=== PATIENT | female | born 1945 | race Caucasian/White ===

== ENCOUNTER → 2017-10-24 | Outpatient (CLI) | payer MEDICARE, OTHER ==
[~2017-10-24] MED LIST: ACEBUTCAFT PO; ASPI81CH PO; CEPH500 PO; DIVA250EC PO; HYDACE5 PO; ONDA4 PO; PROC10 PO; ZOLP5 PO
[2017-10-26 15:09] LABS: HPV 16 Negative (Negative); HPV 18 Negative (Negative); HPV OTHER HR TYPES Negative (Negative)
== END | disposition home or self-care (01) ==
LOC: LAB SHORT 19:14 → LAB 19:14
PROVIDERS: Obstetrics & Gynecology Gynecology
DX: Z12.4 Encounter for screening for malignant neoplasm of cervix (principal)
CPT/HCPCS: 87624; G0123

== ENCOUNTER 2018-10-28 06:36 | Day surgery (SDC) | payer MEDICARE, OTHER ==
[~2018-10-28] VITALS: Ht 160 cm; Wt 79.1 kg
[~2018-10-28 06:36] MED LIST changes: +ALLO300 PO; +CHOL10002 PO; +DULO30 PO; +ENOX40I SC; +EZET10; +FENOFIBRATE145 MG PO; +PROM12.5S PO; +ROXICODONE5 MG PO; +Zolpidem Tartrat5 MG PO
--- NOTE | 2018-10-28 08:16 | NUR ---
10/28/18 0816 Ronit De La Torre 2 CHLORAPREP STICKS USED DUE TO SIZE OF SURGICAL AREA.
--- NOTE | 2018-10-28 09:37 | NUR ---
10/28/18 0937 Tong Cristina PT CURRENTLY RESTING IN RECLINER WITH NEXT TO HER. PT REPORTS NO PAIN OR NAUSEA AT THIS TIME. VITALS STABLE. WILL CONTINUE TO MONITOR PT.
== END 2018-10-28 10:50 | disposition home or self-care (01) ==
LOC: ORSCSDS 06:36
PROVIDERS: Orthopaedic Surgery
PROC: 0LQ14ZZ Repair Right Shoulder Tendon, Percutaneous Endoscopic Approach (ICD-10-PCS; principal; 2018-10-28 07:30)
PROC: 0LS14ZZ Reposition Right Shoulder Tendon, Percutaneous Endoscopic Approach (ICD-10-PCS; principal; 2018-10-28 07:30)
DX: M75.121 Complete rotator cuff tear or rupture of right shoulder, not specified as traumatic (principal); S46.101A Unspecified injury of muscle, fascia and tendon of long head of biceps, right arm, initial encounter; I10 Essential (primary) hypertension; I25.2 Old myocardial infarction; Z86.73 Personal history of transient ischemic attack (TIA), and cerebral infarction without residual deficits; Z79.899 Other long term (current) drug therapy; Z79.82 Long term (current) use of aspirin
CPT/HCPCS: C1713; J0171; J0690; J1100; J1885; J2250; J2405; J2704; J2710; J3010; J3370; J7120

== ENCOUNTER 2019-04-25 18:31 | Inpatient (IN) | payer MEDICARE, OTHER ==
[~2019-04-25] VITALS: Ht 160 cm; Wt 77.1 kg
[~2019-04-25 18:31] MED LIST changes: -ASPI81CH PO; +Aspir 8181 MG PO; -CHOL10002 PO; -EZET10; +VITAMIN D350 MCG PO
[2019-04-25 19:27] LABS: BASOPHILS ABSOLUTE AUTO 0.11 K/mm3 (0.00-0.23); BASOPHILS PERCENT AUTO 1 % (0-2); EOSINOPHILS ABSOLUTE AUTO 0.16 K/mm3 (0.00-0.68); EOSINOPHILS PERCENT AUTO 2 % (0-6); Hematocrit 24.9 % (33.0-51.0); Hemoglobin 7.3 g/dL (11.5-16.0); IMMATURE GRAN ABSOLUTE AUTO 0.03 K/mm3 (0.00-0.10); IMMATURE GRAN PERCENT AUTO 0 % (0-1); LYMPHOCYTES ABSOLUTE AUTO 3.11 K/mm3 (0.84-5.20); LYMPHOCYTES PERCENT AUTO 33 % (21-46); MONOCYTES PERCENT AUTO 10 % (4-13); Mean Corpuscular HGB 21.6 pg (26.0-34.0); Mean Corpuscular HGB Conc 29.3 g/dL (31.5-36.5); Mean Corpuscular Volume 74 fL (80-100); Mean Platelet Volume 11.2 fL (9.1-12.4); NEUTROPHILS ABSOLUTE AUTO 4.99 K/mm3 (1.96-9.15); NEUTROPHILS PERCENT AUTO 54 % (41-73); Platelet Count 479 K/mm3 (150-400); RDW Coefficient Variation 16.3 % (11.7-14.2); RDW Standard Deviation 43.5 fL (35.1-46.3); Red Blood Cell Count 3.38 M/mm3 (3.80-5.20)
[2019-04-25] MEDS ORDERED: EZETIMIBE10 MG PO (19:38)
[2019-04-25 19:41] LABS: International Normalized Ratio 0.99; Prothrombin Time Results 10.6 Sec (9.7-11.5)
[2019-04-25 19:51] LABS: Albumin, Blood 3.4 g/dL (3.4-5.0); Bilirubin, Total 0.2 mg/dL (0.1-1.0); Bun/Creatinine Ratio 42.5 (12.0-20.0); Calcium, Blood 8.9 mg/dL (8.5-10.1); Creatinine, Blood 1.06 mg/dL (0.40-1.00); Globulin, Blood 3.3 g/dL (2.2-4.0); Potassium, Blood 4.6 mmol/L (3.5-5.5); Total Protein, Blood 6.7 g/dL (6.4-8.2)
[2019-04-25 19:56] LABS: IMMATURE RETIC FRACTION 34.5 % (2.3-16.0); RETIC HGB EQUIVALENT 19.8 pg (28.20-36.60); RETICULOCYTE ABSOLUTE 0.0789 M/mm3 (0.0200-0.1100); RETICULOCYTE COUNT PERCENT 2.34 % (0.50-2.50)
[2019-04-25 20:05] LABS: Troponin I <0.015 ng/mL (0.000-0.040); Valproic Acid 42.7 ug/mL (50.0-100.0)
[2019-04-25] MEDS ORDERED: OMEP20ER PO (20:41)
[2019-04-25] MEDS ORDERED: SUCR1 PO (21:12)
--- NOTE | 2019-04-26 03:56 | NUR ---
ADMIT NOTE *LATE ENTRY* HANDOFF RECEIVED FROM ER NURSE CASEY. PT ARRIVED TO FLOOR VIA GURNEY. ORIENTED PT TO UNIT AND ROOM. CALL BUTTON WITHIN REACH. BLOOD TRANSFUSION BEGAN IMMEDIATELY ORDERED.
--- NOTE | 2019-04-26 04:21 | NUR ---
SHIFT SUMMARY PT ADMITTED FROM ER THIS SHIFT. ADMITTED FOR SYMPTOMATIC ANEMIA. FULL CODE. GI CONSULT TO DR COSME HAS BEEN CALLED IN. PT IS WEAK SO WE DID A ONE STANDBY ASSIST. PT RECEIVED ONE UNIT OF BLOOD. SCD'S ARE IN PLACE. WATCHING H&H LABS. SHE IS A&O X4, RA. SHE HAS BEEN NPO SINCE MIDNIGHT IN PREPARATION FOR AN UPPER ENDO. HX: SEIZURES, ARTHRITIS, NEPHROLITHIASIS, HYPERLIPIDEMIA, GOUT, OSTEOPENIA, CATARACTS, HTN.
[2019-04-26 05:00] LABS: Hemoglobin 7.1 g/dL (11.5-16.0); Mean Corpuscular HGB 21.4 pg (26.0-34.0); Mean Corpuscular HGB Conc 28.4 g/dL (31.5-36.5); Mean Corpuscular Volume 75 fL (80-100); Platelet Count 362 K/mm3 (150-400); RDW Coefficient Variation 16.3 % (11.7-14.2); RDW Standard Deviation 44.5 fL (35.1-46.3); Red Blood Cell Count 3.32 M/mm3 (3.80-5.20); White Blood Cell Count 7.99 K/mm3 (4.00-11.30)
[2019-04-26 05:22] LABS: Bun/Creatinine Ratio 36.7 (12.0-20.0); Calcium, Blood 8.3 mg/dL (8.5-10.1); Creatinine, Blood 1.09 mg/dL (0.40-1.00); Potassium, Blood 4.4 mmol/L (3.5-5.5)
--- NOTE | 2019-04-26 14:07 | NUR ---
History, Chart, Medications and Allergies reviewed before start of procedure. Patient confirms NPO status and agrees with scheduled surgery.
--- NOTE | 2019-04-26 14:22 | NUR ---
04/26/19 1422 Tiffany Engel History, Chart, Medications and Allergies reviewed before start of procedure. Patient confirms NPO status and agrees with scheduled surgery. PATIENT DETERMINED TO BE ASA APPROPRIATE FOR PROPOFOL SEDATION PRIOR TO START OF PROCEDURE BY DR. COSME. 3-LEAD EKG REVIEWED WITH PHYSICIAN PRIOR TO START OF PROCEDURE. MONITOR INTACT WITH CONTINUOUS PULSE OXIMETRY AND INTERMITTENT BP.
--- NOTE | 2019-04-26 19:29 | NUR ---
SHIFT SUMMARY PT SLEEPING AT START OF SHIFT TODAY. WOKE EASILY FOR CARE, BUT REPORTED NOT BEING ABLE TO GET MUCH SLEEP LAST NIGHT. PT ADMITTED FOR SYMPTOMATIC ANEMIA. PER SHIFT REPORT, PT RECEIVED 1 UNIT PRBC'S LAST NIGHT. PER LABS THIS AM, H/H WAS LOWER THAN LAST NIGHT. PT NPO AT START OF SHIFT THIS AM FOR POSSIBLE ENDO. CONSULT CALLED TO DR COSME BY KIP RN. DR LUDWIG NOTIFIED THIS AM R/T AM MEDICATIONS; DEPAKOTE. DR LUDWIG INSTRUCTED DEPAKOTE TO BE GIVEN PER EMAR, BUT TO HOLD CARAFATE UNTIL DR COSME CONSULTED. DR URENA IN TO SEE PT LATER IN AM. VERBAL ORDER TO TRANSFUSE ANOTHER [address] COSME THEN IN TO SEE PT AND DISCUSSED UPPER ENDO TO BE DONE SHORTLY. PT TAKEN DOWN TO DAY SX FOR PROCEDURE. JOSE ALBERTO HEBERT CALLED AT 1440 TO REPORT EGD COMPLETE; SM EROSIONS FOUND IN ESOPHAGUS AND STOMACH, BUT NO ACTIVE BLEEDING. BIOPSIES TAKEN IN A COUPLE OF PLACES TO R/O H PYLORIC. VSS PER JOSE ALBERTO, SEE CHART. PT RETURNED TO RM AWAKE, WITH NO C/O. PT REQUESTED TYLENOL FOR R SHOULDER PAIN. FLUIDS AND JELLO GIVEN PER REQUEST WHILE DR COSME ORDERED DIET. BLOOD OBTAINED FROM LAB AND STARTED; SEE CHART. PT TOLERATED WELL. ABLE TO EAT DINNER TONIGHT; TOLERATED THAT WELL ALSO. AT BS. PT MOSTLY INDEPENDENT TO BTHRM, JUST NEEDING ASSIST WITH SCD'S ONLY. CALL LT IN REACH. REPORT GIVEN TO SOTERO HEBERT.
--- NOTE | 2019-04-27 04:43 | NUR ---
SHIFT SUMMARY HAS RESTED WELL THIS SHIFT AFTER TAKING AMBIEN. STATES THAT SHE FEELS BETTER AFTER GETTING THE SECOND UNIT OF PRBC'S ON DAY SHIFT. MILD CONFUSION NOTED BEFORE SLEEP, BED ALARM IN PLACE. DENEIS PAIN, DISCOMFORT, OR FURTHER NEEDS AT THIS TIME. SAFETY MEASURES IN PLACE. WILL GIVE HAND OFF TO ONCOMING SHIFT USING SBAR DURING BEDSIDE REPORT.
[2019-04-27 09:22] LABS: BASOPHILS ABSOLUTE AUTO 0.09 K/mm3 (0.00-0.23); BASOPHILS PERCENT AUTO 1 % (0-2); EOSINOPHILS ABSOLUTE AUTO 0.29 K/mm3 (0.00-0.68); EOSINOPHILS PERCENT AUTO 4 % (0-6); Hematocrit 31.6 % (33.0-51.0); Hemoglobin 9.5 g/dL (11.5-16.0); IMMATURE GRAN ABSOLUTE AUTO 0.04 K/mm3 (0.00-0.10); IMMATURE GRAN PERCENT AUTO 1 % (0-1); LYMPHOCYTES ABSOLUTE AUTO 2.09 K/mm3 (0.84-5.20); LYMPHOCYTES PERCENT AUTO 31 % (21-46); MONOCYTES ABSOLUTE AUTO 0.72 K/mm3 (0.16-1.47); MONOCYTES PERCENT AUTO 11 % (4-13); Mean Corpuscular HGB 22.7 pg (26.0-34.0); Mean Corpuscular HGB Conc 30.1 g/dL (31.5-36.5); Mean Corpuscular Volume 75 fL (80-100); Mean Platelet Volume 10.3 fL (9.1-12.4); NEUTROPHILS PERCENT AUTO 53 % (41-73); Platelet Count 345 K/mm3 (150-400); RDW Coefficient Variation 16.8 % (11.7-14.2); RDW Standard Deviation 44.9 fL (35.1-46.3); Red Blood Cell Count 4.19 M/mm3 (3.80-5.20); White Blood Cell Count 6.83 K/mm3 (4.00-11.30)
[2019-04-27 09:37] LABS: Anion Gap 6 mmol/L (6-16); Blood Urea Nitrogen 22 mg/dL (8-24); Bun/Creatinine Ratio 24.5 (12.0-20.0); CO2, Blood 25 mmol/L (21-32); Calcium, Blood 8.5 mg/dL (8.5-10.1); Chloride, Blood 112 mmol/L (98-108); Glomerular Filtration Rate >60 (60-); Glucose, Blood 115 mg/dL (70-99); Sodium, Blood 143 mmol/L (136-145)
[2019-04-27] MEDS ORDERED: FERSU300 PO (14:10)
[2019-04-27] MEDS ORDERED: PANT40 PO (14:11)
[2019-04-27] MEDS ORDERED: ACET325 PO (14:11)
--- NOTE | 2019-04-27 18:47 | NUR ---
SHIFT SUMMARY PT AWAKE THIS AM WAITING TO GO HOME. PT FEELING BETTER AFTER TRANSFUSIONS YESTERDAY. MEDICATED WITH TYLENOL FOR C/O R SHOULDER PAIN R/T SX REPAIR FROM 6 MONTHS AGO. PT WAS TAKING NSAIDS AT HOME WHICH LED TO BLOOD LOSS/ANEMIA. DR URENA IN TO SEE PT AND DISCUSSED PLAN OF CARE. PT D/C TO HOME AND TO FOLLOW UP WITH PCP AND DR COSME OUTPT TO HAVE COLONOSCOPY. PT STARTED ON NEW MEDICATIONS IN THE MEAN TIME AND TO F/U WITH LABS PRIOR TO PCP VISIT NEXT WEEK. PT AND VERBALIZED UNDERSTANDING OF D/C ORDERS AND PLAN OF CARE. PT GRATEFUL TO GO HOME. ASSISTED PT IN GETTING DRESSED. TAKEN OUT TO CAR VIA W/C. NO C/O.
== END 2019-04-27 14:31 | disposition home or self-care (01) | DRG 382 ==
LOC: ER 18:31 → MEDS 18:32
PROVIDERS: Emergency Medicine; Family Medicine; Internal Medicine Gastroenterology; Physician Assistant; ADMIT Internal Medicine
PROC: 30233N1 Transfusion of Nonautologous Red Blood Cells into Peripheral Vein, Percutaneous Approach (ICD-10-PCS; 2019-04-25)
PROC: 0DD48ZX Extraction of Esophagogastric Junction, Via Natural or Artificial Opening Endoscopic, Diagnostic (ICD-10-PCS; principal; 2019-04-26 14:15)
DX: K22.11 Ulcer of esophagus with bleeding (principal); Z86.73 Personal history of transient ischemic attack (TIA), and cerebral infarction without residual deficits; K25.4 Chronic or unspecified gastric ulcer with hemorrhage; Z96.651 Presence of right artificial knee joint; M10.9 Gout, unspecified; Z79.82 Long term (current) use of aspirin; I10 Essential (primary) hypertension; E78.5 Hyperlipidemia, unspecified; K44.9 Diaphragmatic hernia without obstruction or gangrene
CPT/HCPCS: 36415; 36430; 80048; 80053; 80164; 82728; 83540; 83550; 84443; 84484; 85025; 85027; 85045; 85610; 85730; 86850; 86900; 86901; 86923; 88305; 88312; 88342; 93005; 93010; 96374; 96376; 99285-25; A9270; C9113; G0378; J2704; J7120; P9016

== ENCOUNTER 2019-08-27 12:06 | Day surgery (SDC) | payer MEDICARE, OTHER ==
[~2019-08-27] VITALS: Ht 162.6 cm; Wt 78.3 kg
[~2019-08-27 12:06] MED LIST changes: +ACET325 PO; +Acetaminophen650 M1 PO; +DIVA125EC PO; +EZET10 PO; +EZETIMIBE10 MG PO; +FENO145 PO; +FERSU300 PO; +OMEP20ER PO; +PANT40 PO; +SUCR1 PO; +VITAMIN D-32000 UNIT PO
== END 2019-08-27 14:33 | disposition home or self-care (01) ==
LOC: ORSCSDS 12:06
PROVIDERS: Internal Medicine Gastroenterology
PROC: 0D758ZZ Dilation of Esophagus, Via Natural or Artificial Opening Endoscopic (ICD-10-PCS; principal; 2019-08-27 13:15)
PROC: 0DB48ZX Excision of Esophagogastric Junction, Via Natural or Artificial Opening Endoscopic, Diagnostic (ICD-10-PCS; principal; 2019-08-27 13:15)
PROC: 0DBM8ZX Excision of Descending Colon, Via Natural or Artificial Opening Endoscopic, Diagnostic (ICD-10-PCS; principal; 2019-08-27 13:15)
PROC: 0DBL8ZX Excision of Transverse Colon, Via Natural or Artificial Opening Endoscopic, Diagnostic (ICD-10-PCS; principal; 2019-08-27 13:15)
PROC: 0DBK8ZX Excision of Ascending Colon, Via Natural or Artificial Opening Endoscopic, Diagnostic (ICD-10-PCS; principal; 2019-08-27 13:15)
DX: D50.9 Iron deficiency anemia, unspecified (principal); R10.32 Left lower quadrant pain; Z86.010 Personal history of colon polyps; Z87.11 Personal history of peptic ulcer disease; D12.2 Benign neoplasm of ascending colon; D12.4 Benign neoplasm of descending colon; K63.5 Polyp of colon; K64.1 Second degree hemorrhoids; K57.30 Diverticulosis of large intestine without perforation or abscess without bleeding; K29.80 Duodenitis without bleeding; K22.2 Esophageal obstruction; K44.9 Diaphragmatic hernia without obstruction or gangrene; K31.4 Gastric diverticulum; I25.10 Atherosclerotic heart disease of native coronary artery without angina pectoris; G40.909 Epilepsy, unspecified, not intractable, without status epilepticus; E78.5 Hyperlipidemia, unspecified; Z79.899 Other long term (current) drug therapy; Z79.82 Long term (current) use of aspirin
CPT/HCPCS: 88305; 88342; C1726; J2704; J7120

== ENCOUNTER → 2020-11-01 | Outpatient (CLI) | payer MEDICARE, OTHER | LOC: LAB SHORT 13:00 → LAB 13:00 | DX: L02.214 Cutaneous abscess of groin (principal) | CPT/HCPCS: 87070; 87205 ==